=== PATIENT | female | born 1980 | race African-American/Black ===

== ENCOUNTER 2020-10-05 16:58 | Emergency (ER) | payer SELFPAY ==
[~2020-10-05] VITALS: Ht 160 cm; Wt 95.0 kg
[2020-10-05] MEDS ORDERED: MINERAL OIL ENEMA 133ML PR ONE (19:15)
[2020-10-05 19:22] LABS: UCG SCREEN NEGATIVE
[2020-10-05 19:24] LABS: CLARITY URINE CLOUDY (CLEAR); COLOR URINE YELLOW (YELLOW); KETONES URINE NEGATIVE (NEGATIVE); LEUKOCYTE ESTERASE URINE NEGATIVE (NEGATIVE); NITRITE URINE NEGATIVE (NEGATIVE); OCCULT BLOOD URINE NEGATIVE (NEGATIVE); PROTEIN URINE NEGATIVE (NEGATIVE); UROBILINOGEN URINE 0.2 E.U./dL (0.2-1.0)
[2020-10-05] MEDS ORDERED: CALC625T MT (21:52)
[2020-10-05] MEDS ORDERED: POLY17PO3 MT (21:52)
[2020-10-05 22:10] VITALS: BP 142/88
== END 2020-10-05 22:11 | disposition home or self-care (01) ==
LOC: ER 16:58
DX: K59.00 Constipation, unspecified (principal); D57.1 Sickle-cell disease without crisis; G43.909 Migraine, unspecified, not intractable, without status migrainosus; Z98.890 Other specified postprocedural states; Z88.6 Allergy status to analgesic agent
CPT/HCPCS: 81003; 81025; 99283; Z7610